=== PATIENT | female | born 1995 ===

== ENCOUNTER 2022-01-25 11:13 | Inpatient (IN) ==
[2022-01-25] MEDS ORDERED: FAMOTIDINE 20 MG/2 ML VIAL IV ONE (11:51)
[2022-01-25] MEDS ORDERED: CITRIC ACID/SODIUM CITRATE 30 ML UDCUP PO ONE (11:51)
[2022-01-25] MEDS ORDERED: miSOPROStoL 200 MCG TABLET RECTAL PRN (11:51)
[2022-01-25] MEDS ORDERED: CARBOPROST TROMETHAMINE 250 MCG/ML AMP IM PRN (11:51)
[2022-01-25] MEDS ORDERED: TRANEXAMIC ACID 1,000 MG in SODIUM CHLORIDE 0.9% 100 ML IV PRN ×2 (11:51→13:30)
[2022-01-25] MEDS ORDERED: OXYTOCIN/LR 20 UNIT/1,000 ML BAG IV ONE ×2 (11:51→15:07)
[2022-01-25] MEDS ORDERED: METHYLERGONOVINE 0.2 MG/1 ML AMP IM PRN (11:51)
[2022-01-25] MEDS ORDERED: CLINDAMYCIN INJ 900 MG/50 ML PREMIX IV ONE (11:53)
[2022-01-25] MEDS ORDERED: LACTATED RINGERS 1,000 ML IV SCH (12:00)
[2022-01-25] MEDS ORDERED: OXYTOCIN/LR 30 UNIT/1,000 ML BAG IV ONE (12:04)
[2022-01-25] MEDS ORDERED: OXYTOCIN 10 UNIT/ML VIAL IM ONE (12:06)
[2022-01-25 12:27] LABS: Basophils % 0.2 % (0.0-0.8); Eosinophils # 0.2 10*3/uL (0.0-0.87); Eosinophils % 2.4 % (0.00-10.9); Hematocrit 36.1 VOL% (35.7-47.0); Hemoglobin 11.4 GM/DL (12.0-16.0); Immature Granulocytes % 0.5 %; Immature Granulocytes Absolute 0.04 #; Lymphocytes # 1.5 10*3/uL (1.4-4.0); Lymphocytes % 17.1 % (21.3-54.2); Mean Corpuscular HGB Conc 31.6 GM/DL (32-36); Mean Corpuscular Volume 84.5 FL (87-102); Mean Platelet Volume 9.7 FL (9.6-12.0); Monocytes # 0.5 10*3/uL (0.11-0.8); Monocytes % 5.9 % (1.7-12.7); Neutrophils % 73.9 % (38.7-73.9); Platelet Count 269 T/CUMM (130-400); Red Blood Count 4.27 MC/CUMM (3.8-5.5); Red Cell Distribution Width 13.7 % (9.3-17.3); White Blood Count 8.8 T/CUMM (4-12)
[2022-01-25] MEDS ORDERED: ONDANSETRON 4 MG/2 ML VIAL ONE ×2 (12:55→13:45)
[2022-01-25] MEDS ORDERED: KETOROLAC 30 MG/1 ML VIAL ONE (12:55)
[2022-01-25] MEDS ORDERED: BUPIVACAINE MPF 0.5% 30 ML VIAL ONE (12:55)
[2022-01-25] MEDS ORDERED: buprenorphine HCL 0.3 MG/ML VIAL ONE (12:56)
[2022-01-25] MEDS ORDERED: PHENYLEPHRINE 1 MG/10 ML SYRINGE IV ONE (13:33)
[2022-01-25] MEDS ORDERED: GLYCOPYRROLATE 0.4 MG/2 ML VIAL ONE (13:33)
[2022-01-25 13:55] LABS: Cord Arterial Blood HCO3 20.4 MMOL/L
[2022-01-25 13:58] LABS: Cord Venous Blood HCO3 22.5 MMOL/L; Cord Venous Blood PCO2 53.4 MMHG; Cord Venous Blood PO2 27.5
[2022-01-25 14:09] LABS: Bilirubin,Urine Small mg/dL (Negative); Blood, Urine Negative (Negative); Glucose,Urine (UA) Negative (Negative); Ketones,Urine >=160 mg/dL (Negative); Nitrite,Urine Negative (Negative); Protein,Urine Trace mg/dL (Negative); Urine Appearance Clear (Clear); Urine Color Yellow (Yellow); Urine Specific Gravity >= 1.030 (1.001-1.035)
[2022-01-25 14:16] LABS: Bacteria,Urine Occasional /HPF (Few); Mucus,Urine Many /LPF (Occasional); RBC,Urine 2 /HPF (0-4); Squamous Epithelial Cell,Urine Occasional /HPF (0-10)
[2022-01-25] MEDS ORDERED: diphenhydrAMINE 50 MG/1 ML VIAL IV PRN (14:18)
[2022-01-25] MEDS ORDERED: ONDANSETRON 4 MG/2 ML VIAL IV PRN ×2 (14:18→15:07)
[2022-01-25] MEDS ORDERED: hydrOXYzine HCL 25 MG/1 ML VIAL IM PRN (14:18)
[2022-01-25] MEDS ORDERED: HYDROmorphone 1 MG/1 ML SYRINGE IV PRN (14:18)
[2022-01-25] MEDS ORDERED: ACETAMINOPHEN 325 MG TABLET PO PRN (15:07)
[2022-01-25] MEDS ORDERED: RHO(D) IMMUNE GLOBULIN 300 MCG SYRINGE IM ONE (15:07)
[2022-01-25] MEDS ORDERED: SIMETHICONE CHEW 80 MG TABLET PO PRN (15:07)
[2022-01-25] MEDS ORDERED: IBUPROFEN 800 MG TABLET PO PRN (15:07)
[2022-01-25] MEDS ORDERED: CLINDAMYCIN INJ 900 MG/50 ML PREMIX IV SCH (20:00)
[2022-01-25] MEDS ORDERED: KETOROLAC 30 MG/1 ML VIAL IV SCH (20:00)
[2022-01-25] MEDS: CLINDAMYCIN INJ 900 MG/50 ML PREMIX IV SCH (20:39)
[2022-01-25 23:16] LABS: Basophils % 0.2 % (0.0-0.8); Eosinophils # 0.1 10*3/uL (0.0-0.87); Eosinophils % 1.1 % (0.00-10.9); Hemoglobin 10.4 GM/DL (12.0-16.0); Immature Granulocytes % 0.5 %; Immature Granulocytes Absolute 0.05 #; Lymphocytes # 1.8 10*3/uL (1.4-4.0); Lymphocytes % 18.4 % (21.3-54.2); Mean Corpuscular HGB Conc 32.5 GM/DL (32-36); Mean Corpuscular Volume 83.3 FL (87-102); Mean Platelet Volume 9.9 FL (9.6-12.0); Monocytes # 0.7 10*3/uL (0.11-0.8); Monocytes % 7.7 % (1.7-12.7); Neutrophils % 72.1 % (38.7-73.9); Platelet Count 244 T/CUMM (130-400); Red Blood Count 3.84 MC/CUMM (3.8-5.5); Red Cell Distribution Width 13.4 % (9.3-17.3); White Blood Count 9.7 T/CUMM (4-12)
[2022-01-26] MEDS ORDERED: KETOROLAC 30 MG/1 ML VIAL IV PRN (00:38)
[2022-01-26] MEDS ORDERED: MEPERIDINE 50 MG/1 ML VIAL IV PRN (00:38)
[2022-01-26] MEDS: CLINDAMYCIN INJ 900 MG/50 ML PREMIX IV SCH (04:29)
[2022-01-26] MEDS: MULTIVITAMIN (PRENATAL) TABLET PO SCH (08:06)
[2022-01-26] MEDS: MAGNESIUM HYDROXIDE SUSP 30 ML UDCUP PO PRN ×2 (08:06→20:30)
[2022-01-26] MEDS: DOCUSATE SODIUM 100 MG CAPSULE PO SCH ×3 (08:07→20:30)
[2022-01-26] MEDS: METOCLOPRAMIDE 10 MG TABLET PO SCH ×2 (08:07→15:31)
[2022-01-26 10:38] LABS: Basophils % 0.1 % (0.0-0.8); Eosinophils # 0.2 10*3/uL (0.0-0.87); Eosinophils % 1.7 % (0.00-10.9); Hematocrit 31.3 VOL% (35.7-47.0); Hemoglobin 10.1 GM/DL (12.0-16.0); Immature Granulocytes % 0.6 %; Immature Granulocytes Absolute 0.06 #; Lymphocytes # 1.3 10*3/uL (1.4-4.0); Lymphocytes % 13.9 % (21.3-54.2); Mean Corpuscular HGB Conc 32.3 GM/DL (32-36); Monocytes # 0.7 10*3/uL (0.11-0.8); Monocytes % 7.9 % (1.7-12.7); Neutrophils % 75.8 % (38.7-73.9); Platelet Count 229 T/CUMM (130-400); Red Blood Count 3.77 MC/CUMM (3.8-5.5); Red Cell Distribution Width 13.7 % (9.3-17.3); White Blood Count 9.4 T/CUMM (4-12)
[2022-01-26] MEDS: LACTATED RINGERS 1,000 ML IV SCH ×2 (18:41→18:42)
[2022-01-27] MEDS: METOCLOPRAMIDE 10 MG TABLET PO SCH ×2 (03:36→08:59)
[2022-01-27] MEDS: MULTIVITAMIN (PRENATAL) TABLET PO SCH (09:00)
[2022-01-27] MEDS: DOCUSATE SODIUM 100 MG CAPSULE PO SCH (09:01)
[2022-01-27] MEDS ORDERED: DIPH/TET/ACEL PERT BOOSTER VACCINE 0.5 ML VIAL IM ONE (09:31)
[2022-01-27 11:54] VITALS: BP 147/77
[2022-01-27] MEDS ORDERED: INFLUENZA VIRUS VACCINE 0.5 ML SYRINGE IM ONE (12:01)
== END 2022-01-27 13:50 | disposition home or self-care (01) | DRG 540 ==
LOC: N.LDOUT 11:13 → N.LD 11:18 → N.OB 17:30
PROVIDERS: ADMIT Obstetrics & Gynecology; ATTEND Obstetrics & Gynecology
PROC: LDCSECT (ICD-10-PCS; 2022-01-25 12:15)